=== PATIENT | female | born 1940 | race Caucasian/White ===

== ENCOUNTER 2019-07-04 08:42 | Inpatient (IN) ==
[2019-07-04] MEDS ORDERED: NS 1,000 ML IV ONE (09:18)
[2019-07-04] MEDS ORDERED: ZOFRAN IV ONE (09:18)
[2019-07-04] MEDS ORDERED: MORPHINE IV ONE (09:19)
--- NOTE | 2019-07-04 09:43 | PROVIDER DOCUMENTATION ---
HPI-General Adult - General Chief Complaint: Burn[s] Stated Complaint: LOWER BACK GRAVES FROM A HEATING PAD Time Seen by Provider: 07/04/19 08:58 Source: patient, family Allergies/Adverse Reactions: Patient Allergies Allergy/AdvReac Type Severity Reaction Status Date / Time codeine Allergy Unknown Verified 07/04/19 08:58 Home Medications: Home Medication List Medication Instructions Recorded Confirmed Last Taken Type Desvenlafaxine Succinate [Pristiq 100 mg PO DAILY 05/26/15 07/04/19 05/09/18 08:00 History ER] Fenofibrate [Tricor] 145 mg PO DAILY 05/26/15 07/04/19 05/09/18 08:00 History Gabapentin 600 mg PO HS 05/26/15 07/04/19 05/09/18 21:00 History Omeprazole [Prilosec] 20 mg PO DAILY@0700 05/26/15 07/04/19 05/09/18 08:00 History Warfarin [Coumadin] 2 mg PO DIRECTED 05/26/15 07/04/19 05/02/18 History Amlodipine/Valsartan [Exforge 1 each PO DAILY 05/02/18 07/04/19 05/09/18 21:00 History 5/160] Citalopram [Celexa] 20 mg PO DAILY 05/02/18 07/04/19 05/09/18 08:00 History Niacin [Niaspan] 1,000 mg PO HS 05/02/18 07/04/19 05/09/18 21:00 History Tramadol/APAP [Ultracet 1 each PO Q8H PRN PRN 05/02/18 07/04/19 05/09/18 12:00 History 37.5MG/325Mg] Trazodone HCl 150 mg PO HS 05/02/18 07/04/19 05/09/18 21:00 History Hydroxyzine [Atarax] 25 mg PO DAILY 05/10/18 07/04/19 05/09/18 08:00 History Bupropion X.l. [Wellbutrin Xl] 150 mg PO DAILY 07/04/19 07/04/19 Unknown History - History of Present Illness -Gen Adult Nature of Presenting Problems: Pt. is 78 yof that presents by EMS for c/o fall Tuesday night. She reports she was on the toilet and got tangled in her walker while trying to get up. She reports taking blood thinners and has a large hematoma to the right flank and hip. Pt. reports pain all over. She is unsure of any LOC. Location of Pain/Injury: reports: generalized. denies: none, head, face, mouth, neck, chest, upper extremity, hand(s), abdomen, back, pelvis, genitalia, lower extremity, feet, upper body, lower body, other Pain Radiation: reports: no radiation. denies: arm(s), back, buttocks, chest, epigastric, feet, groin, jaw, flank (L), legs (lower), LLQ, LUQ, neck, periumbilical, flank (R), RLQ, RUQ, shoulder(s), scapula, scrotal, sternal notch, suprapubic, legs (upper), urethral, vaginal, other Quality of Pain: reports: aching. denies: cramping, pressure, tightness Severity: reports: moderate. denies: mild, severe Onset/Duration: reports: abrupt, 2 days ago Timing: reports: still present. denies: improving, intermittent, getting worse Context/Activities at Onset: reports: light activity, recent trauma history. denies: none, moderate activity, vigorous activity, recent emotional stress, recent physical stress, possible bad food, cold exposure, eating, out of country travel, rest, sleep, sexual activity, other Modifying Factors: improves with: nothing Associated Symptoms: reports: muscle aches, weakness. denies: denies symptoms, anxiety, arm pain, back/neck pain, chest pain, constipation, cough, diaphoresis, diarrhea, dizziness, EENT symptoms, fatigue, fever/chills, genitourinary problems, headaches, heartburn, joint pain, loss of appetite, malaise, sinus c ongestion/drainage, nausea, rash, seizure, shortness of breath, sensory/motor loss, pain with inspiration, swelling/mass in abdomen, syncope, vomiting, trouble walking, other Similar Symptoms Previously?: Yes Recently seen or treated by another doctor?: No Review of Systems - Adult - REVIEW OF SYSTEMS - ADULT Constitutional: reports: no symptoms reported Eyes: reports: no symptoms reported Ears, Nose, Mouth & Throat: reports: no symptoms reported Cardiovascular: reports: no symptoms reported Respiratory: reports: no symptoms reported Gastrointestinal: reports: no symptoms reported Genitourinary: reports: no symptoms reported Musculoskeletal: reports: see HPI, joint pain, muscle aches, muscle weakness. denies: bone pain, neck pain Integumentary: reports: see HPI, other (hematoma). denies: hair loss, nail changes, skin sores/ulcer Neurological: reports: no symptoms reported Psychiatric: reports: no symptoms reported Past History - Adult - PAST MEDICAL HISTORY-ADULT Review of Records: reports: Old Records Reviewed, Nursing Assessment Review, Medications Reviewed, Social history reviewed & non-contributory. Major Childhood Illnesses: reports: denies history Cardiovascular: reports: HTN, hyperlipidemia, other (arrhythmia) Respiratory: reports: denies history Gastrointestinal: reports: GERD Obstetrical/Gynecological: reports: denies history Genitourinary: reports: denies history Musculoskeletal: reports: denies history Neurological: reports: denies history Psychiatric: reports: anxiety Endocrine/Immune: reports: Diabetes Other Conditions: reports: denies history - PRIOR SURGERIES/PROCEDURES Surgical/Procedure History: reports: hysterectomy, orthopedic (extremity) (bi lateral knee ), joint replacement (total knee ) - IMMUNIZATION STATUS Childhood Immunizations: See Nurse Assessment Flu Vaccine: See Nurse Assessment - FAMILY HISTORY Family History: reviewed, not pertinent - SOCIAL HISTORY Smoking: denies Physical Exam-General - PHYSICAL EXAM-ADULT Initial Vital Signs Reviewed: Yes - CONSTITUTIONAL General Appearance: alert, mild distress, obese. negative: anxious, slow to respond, obtunded, combative - EYES Eyes: PERRL/EOMI, pink conjunctivae - HEAD, EARS, NOSE, MOUTH & THROAT HENMT: normocephalic/atraumatic, moist mucous membranes - NECK Neck: non-tender, full range of motion, supple, normal inspection - RESPIRATORY Respiratory: lungs clear, normal breath sounds - CARDIOVASCULAR Cardiovascular: normal peripheral pulses, regular rate, rhythm - GASTROINTESTINAL (ABDOMEN) Abdominal Exam: normal bowel sounds, soft - LYMPHATIC Lymphatic: no adenopathy - MUSCULOSKELETAL Back Exam: ecchymosis, muscle spasm. negative: kyphosis, swelling, vertebral tenderness Extremity: normal inspection Peripheral Pulses: radial (R): 2+, radial (L): 2+ - SKIN Integumentary: ecchymosis (large hematoma noted to right lower back, right hip and right flank.), other (There are graves to the right lower back where the patient fell asleep on a heating pad.). negative: cyanosis, jaundice, swelling, tenderness - NEUROLOGIC Neurologic: grossly normal, no motor/sensory deficits - PSYCHIATRIC Psych/Mental Status: oriented x 3. negative: anxious, paranoid, tearful Progress - PLAN OF CARE/RESULTS Progress/Plan/Lab Results: Vital Signs - 8 hr 07/04/19 08:48 Temperature 97.6 F Pulse Rate 95 H Respiratory Rate 20 Blood Pressure 95/51 O2 Sat by Pulse Oximetry 98 Orders Category Date Time Status Saline Loc NOW Care 07/04/19 09:15 Active CHEST-1 VIEW [RAD] Stat Exams 07/04/19 09:[address] HEAD/C-SPINE W/O CONTRAST [CT] Stat Exams 07/04/19 09:[address] PELVIS W/O CONTRAST [CT] Stat Exams 07/04/19 09:17 Ordered BLOOD CULTURE [BLDCUL] Stat Lab 07/04/19 09:22 Ordered CBC WITH ELECTRONIC DIFF [HEME] Stat Lab 07/04/19 09:00 Results CK PROFILE [SP CHEM] Stat Lab 07/04/19 09:00 Received COMPREHENSIVE METABOLIC PANEL [CHEM] Stat Lab 07/04/19 09:00 Received LACTATE, PLASMA [CHEM] Stat Lab 07/04/19 09:00 Received PROTIME WITH INR [COAG] Stat Lab 07/04/19 09:00 Received PTT [COAG] Stat Lab 07/04/19 09:00 Received TROPONIN T Stat Lab 07/04/19 09:00 Received URINALYSIS W/POSS RFLX CULT [URINALYSIS] Stat Lab 07/04/19 09:16 Uncollected 0.9% Sodium Chloride Inj [Ns] 1,000 ml Med 07/04/19 09:18 Discontinued IV KVO mls/hr Morphine Med 07/04/19 09:19 Discontinued 2 mg IV NOW ONE Ondansetron [Zofran] Med 07/04/19 09:18 Discontinued 4 mg IV NOW ONE EKG [EKG] Stat Ther 07/04/19 09:15 Ordered Result Diagrams: 07/04/19 09:00 07/04/19 09:00 - CT/MRI 1 CT Study: Cervical Spine ([facility] - [address], [address], [place] [address] [address] Department of Imaging Patient: JAROCHO CARPENTER Date: 07/04/19MR#: [id number] : 1940DM Status: REG ERAcct#: [id number] Age/Sex: 78/FRoom/Bed: Loc: ED Ordering Physician: Noe Mosley Family Physician: Christiano Westbrook DO Reason for Procedure: Fall/unk LOC Signed CT HEAD/C-SPINE W/O CONTRAST - 07/04/2019 INDICATION: Fall/unk LOC COMPARISON: 05/26/2015 FINDINGS: Head CT: There is mild cerebral atrophy. There is very mild periventricular white matter chronic microvascular ischemia. No intracranial mass or hemorrhage. The skull is intact. The sinuses are clear. Cervical spine: Stable fusion changes at the disc space at C5-C6. Alignment is anatomic. No fracture or subluxation. Stable mild multilevel degenerative disc disease. Stable moderate to advanced multilevel facet degeneration. IMPRESSION: No acute injury. This exam was performed using automated exposure control, adjustment of mA or kV according to patient size, and/or use of iterative reconstruction technique Electronically signed by Rakan Riggins 07/04/2019 10:11 AM 07/04/19 1011 Interpreting Physician: Rakan Riggins MD Dictated Date/Time: 07/04/19 1007 cc: Noe Mosley; Christiano Westbrook DO), Head CT Results: See note 2 CT Study: Pelvis ([facility] - [address], [address], [place] [address] [address] [place] [address] [place] [address] Department of Imaging Patient: JAROCHO CARPENTER Date: 07/04/19MR#: [id number] : 1940DM Status: REG ERAcct#: [id number] Age/Sex: 78/FRoom/Bed: Loc: ED Ordering Physician: Noe Mosley Family Physician: Christiano Westbrook DO Reason for Procedure: Fall/pain with bruising Right side Signed CT PELVIS W/O CONTRAST - 07/04/2019 INDICATION: Fall/pain with bruising Right side COMPARISON: X-ray series 07/04/2016 FINDINGS: There is a stable right total hip prosthesis. Alignment is anatomic. No fracture or subluxation. There is advanced osteoarthritis of the left hip. There is also advanced degeneration of the lower lumbar spine. There is extensive subcutaneous soft tissue edema at the lateral right hip region. No drainable fluid collections. IMPRESSION: Extensive bruising over the right hip. No fractures. This exam was performed using automated exposure control, adjustment of mA or kV according to patient size, and/or use of iterative reconstruction technique Electronically signed by Rakan Riggins 07/04/2019 10:14 AM 07/04/19 1014 Interpreting Physician: Rakan Riggins MD Dictated Date/Time: 07/04/19 1011 cc: Noe Mosley; Christiano Westbrook DO) CT Results: See note 3 CT Study: Abdomen, Thorax ([facility] - [address] [facility], [address], [place] [address] [facility] - [address] [place] [address] Department of Imaging Patient: JAROCHO CARPENTER Date: 07/04/19MR#: [id number] : 1940DM Status: REG ERAcct#: [id number] Age/Sex: 78/FRoom/Bed: Loc: ED Ordering Physician: Noe Mosley Family Physician: Christiano Westbrook DO Reason for Procedure: Fall with pain to right ribs Signed CT THORAX/ABDOMEN W/O CONTRAST - 07/04/2019 INDICATION: Fall with pain to right ribs COMPARISON: None FINDINGS: CHEST: There is no adenopathy. Heart and great vessels are normal. The lungs are clear. There are several old right-sided rib deformities. No acute rib fracture. ABDOMEN: There is minimally displaced fracture of the tip of the right transverse process of L1. There is moderate scoliosis and severe degeneration throughout the lumbar spine. There is an IVC filter in good position. There is severe soft tissue edema at the right lateral abdominal and pelvic body wall. There are a couple of hematomas in the right lateral subcutaneous body wall measuring six and 5 cm respectively. No bowel obstruction or inflammation. There are cholecystectomy clips. Otherwise all abdominal organs are normal. IMPRESSION: 1. Minimally displaced fracture of the right transverse process of L1. 2. Severe right abdominal body wall subcutaneous swel ling. There are a couple of moderate size hematomas as well. This exam was performed using automated exposure control, adjustment of mA or kV according to patient size, and/or use of iterative reconstruction technique Electronically signed by Rakan Riggins 07/04/2019 12:00 PM 07/04/19 1200 Interpreting Physician: Rkaan Riggins MD Dictated Date/Time: 07/04/19 1155 cc: Noe Mosley; Christiano Westbrook DO) CT Results: See note - CONSULTS/PCP/HOSPITALIST Notification #1 *Consult/PCP/Hospitalist*: Cari Vitale Time Discussed: 12:27 Reason/Comments: Admission Consult Disposition: Will see in ED, Admit Departure - Departure Date of Disposition Decision: 07/04/19 Time of Disposition Decision: 10:37 DIAGNOSIS: Acute kidney injury, Hypocalcemia, Hyperglycemia, Hematoma Anemia Qualifiers: Anemia type: unspecified type Qualified Code(s): D64.9 - Anemia, unspecified Disposition: ADMITTED INPATIENT 09 Certified Medical Emergency: Emergent Condition: Stable Referrals and Follow-Ups: Christiano Westbrook DO [Primary Care Provider] - - Critical Care Note This patient required my direct & personal management of CC.: Yes Total Time (mins): 45 Critical Care Statement: This patient required my direct personal management to treat or rule out processes, the absence of which, could potentiallly result in sudden, clinically significant life or limb threatening deterioration. Attestation - Physician/ HERMILA Attestation Patient care was provided by Advanced Practice Provider:: Yes Advanced Practice Provider:: Noe Mosley Advanced Practice Provider documentation review:: The Mid-level provider documentation, treatment plan and medical decision making was reviewed by the physician who agrees with all treatment and medical decision making by the MLP. The physician spent face to face time with patient:: No Advanced Practice Provider documentation review:: Supervising physician onsite and consulted in the evaluation and care of this patient. The physician did not have a face to face encounter with the patient.
[2019-07-04 10:00] LABS: PTT 75.7 Seconds (22.3-41.8)
[2019-07-04 10:03] LABS: BASO# 0.04 X1000 (0.0-0.2); BASO% 0.5 % (0.0-0.8); EOS# 0.12 X1000 (0.0-0.7); EOS% 1.4 % (0.0-10.0); HEMATOCRIT 20.6 % (37.0-47.0); HEMOGLOBIN 6.6 g/dL (12.0-16.0); IMM GRAN# 0.02 X1000 (0.0-0.04); IMM GRAN% 0.2 % (0.0-0.5); LYMPH# 1.62 X1000 (1.2-3.4); LYMPH% 19.4 % (20.5-51.1); MCH 33.7 PG (27-31); MCV 105.1 FL (81-99); MPV 10.4 FL (7.4-10.4); NEUT# 6.04 X1000 (1.4-6.5); NEUT% 72.5 % (42.2-75.2); PLT 209 X1000 (130-400); RBC 1.96 XMIL (4.2-5.4); RDW 12.7 % (11.5-14.5); WBC 8.34 X1000 (4.8-10.8)
--- NOTE | 2019-07-04 10:12 | Diag Imaging Result Doc PS360 ---
EXAM: CHEST-1 VIEW INDICATION: Fall/weakness TECHNIQUE: One view COMPARISON: 06/16/2015 FINDINGS: There has been an interval left shoulder arthroplasty. There are a few stable healed rib fractures on the right. The lungs are grossly clear. There is no significant pleural fluid collection or pneumothorax. The cardiomediastinal silhouette and central vasculature are grossly unremarkable. IMPRESSION: No evidence of acute pathology by plain radiograph. Electronically signed by Alexis Mccarty 07/04/2019 10:09 AM
--- NOTE | 2019-07-04 10:14 | Diag Imaging Result Doc PS360 ---
CT HEAD/C-SPINE W/O CONTRAST - 07/04/2019 INDICATION: Fall/unk LOC COMPARISON: 05/26/2015 FINDINGS: Head CT: There is mild cerebral atrophy. There is very mild periventricular white matter chronic microvascular ischemia. No intracranial mass or hemorrhage. The skull is intact. The sinuses are clear. Cervical spine: Stable fusion changes at the disc space at C5-C6. Alignment is anatomic. No fracture or subluxation. Stable mild multilevel degenerative disc disease. Stable moderate to advanced multilevel facet degeneration. IMPRESSION: No acute injury. This exam was performed using automated exposure control, adjustment of mA or kV according to patient size, and/or use of iterative reconstruction technique Electronically signed by Rakan Riggins 07/04/2019 10:11 AM
--- NOTE | 2019-07-04 10:16 | Diag Imaging Result Doc PS360 ---
CT PELVIS W/O CONTRAST - 07/04/2019 INDICATION: Fall/pain with bruising Right side COMPARISON: X-ray series 07/04/2016 FINDINGS: There is a stable right total hip prosthesis. Alignment is anatomic. No fracture or subluxation. There is advanced osteoarthritis of the left hip. There is also advanced degeneration of the lower lumbar spine. There is extensive subcutaneous soft tissue edema at the lateral right hip region. No drainable fluid collections. IMPRESSION: Extensive bruising over the right hip. No fractures. This exam was performed using automated exposure control, adjustment of mA or kV according to patient size, and/or use of iterative reconstruction technique Electronically signed by Rakan Riggins 07/04/2019 10:14 AM
[2019-07-04 10:17] LABS: INR 7.76; PROTIME 68.5 Seconds (11.0-16.0)
[2019-07-04 10:22] LABS: ALB/GLOB RATIO 1.6; ALBUMIN 2.6 g/dL (3.5-5.0); CREATININE 2.6 mg/dL (0.5-0.9); POTASSIUM 3.6 mmol/L (3.5-5.1); TOTAL BILIRUBIN 0.26 mg/dL (0.20-1.00); TOTAL PROTEIN 4.2 g/dL (6.3-8.3)
[2019-07-04] MEDS ORDERED: NS 500 ML IV ONE (10:22)
[2019-07-04 10:27] LABS: URINE SOURCE CATH
[2019-07-04 10:30] LABS: BILIRUBIN URINE SMALL (NEGATIVE); BLOOD URINE NEGATIVE (NEGATIVE); COLOR YELLOW; GLUCOSE URINE NEGATIVE (NEGATIVE); KETONE URINE NEGATIVE (NEGATIVE); LEUKOCYTES URINE NEGATIVE (NEGATIVE); NITRITE URINE NEGATIVE (NEGATIVE); PROTEIN URINE NEGATIVE (NEGATIVE); SP GRAVITY URINE 1.018; TURBIDITY URINE CLEAR (CLEAR); UR EPITHELIAL CELLS <10 /HPF (<10); URINE BACTERIA NEGATIVE /HPF; URINE RBC <10 /HPF (<10); URINE WBC <10 /HPF (<10); UROBILINOGEN URINE NORMAL (NORMAL)
[2019-07-04 10:36] LABS: CALCIUM 6.5 mg/dL (8.8-10.2)
[2019-07-04] MEDS ORDERED: CALCIUM GLUCONATE 1 GM in NS 50 ML IV ONE (10:51)
[2019-07-04] MEDS ORDERED: DILAUDID IV ONE (10:52)
--- NOTE | 2019-07-04 12:02 | Diag Imaging Result Doc PS360 ---
CT THORAX/ABDOMEN W/O CONTRAST - 07/04/2019 INDICATION: Fall with pain to right ribs COMPARISON: None FINDINGS: CHEST: There is no adenopathy. Heart and great vessels are normal. The lungs are clear. There are several old right-sided rib deformities. No acute rib fracture. ABDOMEN: There is minimally displaced fracture of the tip of the right transverse process of L1. There is moderate scoliosis and severe degeneration throughout the lumbar spine. There is an IVC filter in good position. There is severe soft tissue edema at the right lateral abdominal and pelvic body wall. There are a couple of hematomas in the right lateral subcutaneous body wall measuring six and 5 cm respectively. No bowel obstruction or inflammation. There are cholecystectomy clips. Otherwise all abdominal organs are normal. IMPRESSION: 1. Minimally displaced fracture of the right transverse process of L1. 2. Severe right abdominal body wall subcutaneous swelling. There are a couple of moderate size hematomas as well. This exam was performed using automated exposure control, adjustment of mA or kV according to patient size, and/or use of iterative reconstruction technique Electronically signed by Rakan Riggins 07/04/2019 12:00 PM
[2019-07-04] MEDS ORDERED: TYLENOL PO PRN (13:54)
[2019-07-04] MEDS ORDERED: DILAUDID IV PRN (13:54)
[2019-07-04] MEDS ORDERED: VITAMIN K SUBQ ONE (13:54)
--- NOTE | 2019-07-04 14:26 | HISTORY AND PHYSICAL ---
HISTORY OF PRESENT ILLNESS: Ms Robbins is a 78-year-old. She presented, stated that today is Tuesday. I think it was Tuesday, she was in the bathroom and got tangled up in her walker, and she fell and hit her back pretty hard. Her right side has got a large area of ecchymosis. She is on blood thinner. Radiographically, she has an L1 transverse process fracture. She was walking right after the fall, able to get her up but today, in a lot of pain. She had put a heating pad on the back and she has some vesicles and some irritated skin, large area of ecchymosis extending all around the right flank. PAST MEDICAL HISTORY: 1. She has had a blood clot, DVT in the leg in the past. 2. Depression. 3. Hypertension. 4. Apparently chronic kidney disease. 5. Rheumatoid arthritis. PAST SURGICAL HISTORY: 1. Appendectomy. 2. Cholecystectomy. 3. She has had right hip replacement. 4. Status post hysterectomy. 5. Both knees have had total knee arthroplasty. The right has had a total of three surgeries with revision. Problems with general anesthesia, she has not had any problems with that. SOCIAL HISTORY: She is . Several children and grandchildren. Never has smoked. No alcohol. 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 She has seen Dr. Frederick in the past. I think he did surgical intervention on that left shoulder. ALLERGIES: Codeine. MEDICATIONS: We will review her medications. There was a note about a possible arrhythmia in the past but I think she was on blood thinner for a history of DVT in the past. They are not really sure. Her family is not really sure why she is on blood thinner. REVIEW OF SYSTEMS: No fever or chills. No weight gain or loss. HEENT: No change in visual or hearing acuity. Respiratory: No increased work of breathing or dyspnea. Cardiovascular: No chest pain or tachy palpitations. GI and : No change in bowels or urination. Endocrinologic/Hematologic: No significant history. Musculoskeletal: Complaints of right back pain and she has a large area of ecchymosis with burn on the right flank. PHYSICAL EXAMINATION: VITAL SIGNS: Temperature is 97.6 degrees, pulse is 88, respirations 17, blood pressure 115/57. Weight 192 pounds. Height 5 feet 5 inches. HEENT: Pupils are equal and round. Oral and nasal mucosa without any lesions. RESPIRATORY: Lungs are clear in all lung bey. CARDIOVASCULAR EXAMINATION: Regular rhythm and rate without murmur or S3. ABDOMEN: Soft, nondistended. SKIN: Large area of ecchymosis extends around to the right flank and to the mid back, probably be 14-15 cm wide. She had some vesicles where she has had a heating pad, a few scattered vesicles and some skin tears there as well. NECK: Without any thyromegaly. No adenopathy. LABORATORY DATA: White count 8340, hematocrit is 20, hemoglobin 6.6, platelet count 209,000, with an MCV of 105. Sodium 139, potassium 3.6, chloride 109, BUN 26, creatinine 2.6. AST was 7, ALT was 30. Note, her albumin is 2.6. Prothrombin time was 68 with an INR of 7.76. Urinalysis unremarkable. CT of the abdomen and chest, minimally displaced fracture on the right transverse process of L1, severe right abdominal body wall subcutaneous swelling, a couple of moderate-sized hematomas as well. Chest x-ray, no evidence of acute pathology. No infiltrates. Head and spinal CT, no acute injury appreciated. Pelvic CT, extensive bruising over the right hip but no fractures. ASSESSMENT AND PLAN: 1. L1 transverse process fracture on the right, minimally displaced, large area of hematoma. She says she is on Coumadin and chronic anticoagulation. We are going to obviously stop the Coumadin. We are going to give fresh frozen plasma 1 unit. We will give some vitamin K. Ask just for orthopedics to render an opinion and we will begin physical therapy. 2. She had some irritation on her skin where she had a heating pad and some small superficial whitley and skin tears that we need to treat topically. 3. We need to see how she does as far as ambulation and her independence. Maybe we can get her home with home health, depending on how we progress. 4. Chronic kidney disease. Her creatinine is 2.6. It was 1.4 back in April of 2018, so we are going to give her some fluid. We are going to go ahead and check her left ventricular function with an echocardiogram Doppler just to help us with fluid management but right now, we will give her normal saline and we will run it at 85 mL an hour. We will follow closely her creatinine and electrolytes, checking them daily for the next 3 or 4 days. 5. She also had significant anemia which I am assuming this is related to the hematoma. Her hemoglobin was 6.6, hematocrit was 20, MCV is 105, but we are going to give 2 units of packed red blood cells. 6. For pain control, the Dilaudid seemed to work pretty good so we will give her 1 mg of Dilaudid every 4 hours as needed. REVIEW OF MEDICATIONS: Looking over her medications, I think we will continue her current medications. She is on amlodipine, valsartan combination 5/160 one a day. She takes Wellbutrin XL 150 mg a day, Celexa 20 mg a day, Pristiq 100 mg daily, Tricor 145 mg a day, gabapentin 600 mg at bedtime, Atarax 25 mg p.o. daily, Niaspan 1000 mg at bedtime. She takes tramadol at home, trazodone 150 mg p.o. at bedtime. Obviously, we will hold the Coumadin. We are going to need to watch. She is on Wellbutrin, Celexa, Pristiq, trazodone, tramadol, and gabapentin. All of these can lead to serotonin syndrome so we may have to hold some of this but we will go ahead and continue for now. cc: Dimitri Vitale MD
[2019-07-04 14:36] LABS: FREE T4 1.12 ng/dL (0.93-1.70); TSH 2.24 uIUmL (0.27-4.20)
[2019-07-04] MEDS ORDERED: NS 250 ML ONE (15:21)
[2019-07-04] MEDS: NS 1,000 ML IV SCH (17:00)
--- NOTE | 2019-07-04 17:28 | Diag Imaging Result Doc PS360 ---
THORACO-LUMBAR SPINE - 07/04/2019 INDICATION: back pain TECHNIQUE: Three views COMPARISON: 05/26/2015 FINDINGS: There is a stable IVC filter at about L2. Alignment is grossly anatomic. No fracture or subluxation. There is moderate to advanced multilevel degenerative disc disease. This is worst at the lower lumbar spine. There is also advanced facet disease at the lower lumbar spine. IMPRESSION: No acute injury at the thoracolumbar junction. Electronically signed by Rakan Riggins 07/04/2019 5:25 PM
[2019-07-04] MEDS: ULTRACET 37.5MG/325MG PO PRN (18:57)
[2019-07-04] MEDS ORDERED: BENADRYL IV ONE (19:32)
[2019-07-04] MEDS ORDERED: CLARITIN PO ONE (19:33)
[2019-07-04] MEDS ORDERED: PHENERGAN IV ONE (19:34)
[2019-07-04] MEDS ORDERED: SODIUM CHLORIDE 0.9% INJ ONE (19:34)
[2019-07-04] MEDS ORDERED: ZANTAC PO ONE (19:36)
[2019-07-04] MEDS: ZOFRAN IV PRN (19:36)
[2019-07-04] MEDS: NS 1,000 ML IV ONE ×2 (19:45→19:54)
[2019-07-04] MEDS: OFIRMEV 1000 MG/ISOTONIC SOLN 1,000 MG/100 ML BOTTLE IV SCH (19:53)
[2019-07-04] MEDS ORDERED: NEURONTIN PO SCH (21:00)
[2019-07-04] MEDS: DESYREL PO SCH (21:55)
[2019-07-04] MEDS: NIACIN PO SCH (21:56)
[2019-07-05] MEDS: OFIRMEV 1000 MG/ISOTONIC SOLN 1,000 MG/100 ML BOTTLE IV SCH ×3 (02:37→16:01)
[2019-07-05 05:13] LABS: URINE SOURCE CLEAN CATCH
[2019-07-05 05:18] LABS: BILIRUBIN URINE NEGATIVE (NEGATIVE); BLOOD URINE MODERATE (NEGATIVE); COLOR YELLOW; GLUCOSE URINE NEGATIVE (NEGATIVE); KETONE URINE NEGATIVE (NEGATIVE); LEUKOCYTES URINE NEGATIVE (NEGATIVE); NITRITE URINE NEGATIVE (NEGATIVE); PH URINE 5.5; PROTEIN URINE NEGATIVE (NEGATIVE); TURBIDITY URINE HAZY (CLEAR); UROBILINOGEN URINE NORMAL (NORMAL)
[2019-07-05 05:29] LABS: UR EPITHELIAL CELLS <10 /HPF (<10); URINE BACTERIA NEGATIVE /HPF; URINE CASTS NONE SEEN; URINE CRYSTALS NONE SEEN; URINE RBC <10 /HPF (<10); URINE SMALL ROUND CELLS NONE SEEN; URINE WBC <10 /HPF (<10); URINE YEAST NONE SEEN
[2019-07-05 08:29] LABS: BASO# 0.03 X1000 (0.0-0.2); BASO% 0.2 % (0.0-0.8); EOS# 0.25 X1000 (0.0-0.7); EOS% 1.7 % (0.0-10.0); HEMATOCRIT 21.2 % (37.0-47.0); HEMOGLOBIN 6.9 g/dL (12.0-16.0); IMM GRAN# 0.05 X1000 (0.0-0.04); IMM GRAN% 0.3 % (0.0-0.5); INR 3.08; LYMPH% 9.3 % (20.5-51.1); MCH 31.8 PG (27-31); MCHC 32.5 g/dL (33-37); MCV 97.7 FL (81-99); MONO# 0.98 X1000 (0.11-0.59); MONO% 6.5 % (1.7-9.3); MPV 9.7 FL (7.4-10.4); NEUT# 12.33 X1000 (1.4-6.5); PLT 137 X1000 (130-400); PROTIME 32.7 Seconds (11.0-16.0); RBC 2.17 XMIL (4.2-5.4); RDW 16.2 % (11.5-14.5); WBC 15.04 X1000 (4.8-10.8)
[2019-07-05 08:53] LABS: CALCIUM 8.1 mg/dL (8.8-10.2); CREATININE 3.4 mg/dL (0.5-0.9); POTASSIUM 4.8 mmol/L (3.5-5.1)
[2019-07-05] MEDS ORDERED: TRICOR PO SCH (09:00)
[2019-07-05] MEDS ORDERED: ATARAX PO SCH (09:00)
[2019-07-05] MEDS ORDERED: CELEXA PO SCH (09:00)
[2019-07-05] MEDS ORDERED: PRISTIQ ER PO SCH (09:00)
[2019-07-05] MEDS ORDERED: WELLBUTRIN XL PO SCH (09:00)
[2019-07-05] MEDS: EXFORGE 5/160 PO SCH (09:59)
--- NOTE | 2019-07-05 13:42 | PROGRESS NOTE ---
DATE: 07/05/2019 SUBJECTIVE: Ms. Robbins had some confusion this morning. Early this morning, I saw her. She was comfortable, had gotten good sleep but then later on, she was confused. Tried to pull or IV out, took her clothes off, and now she is oriented again x3. I think we need to back down on, in particular, her serotonin uptake inhibitor. She is on a variety of medicines that kind of contribute to serotonin syndrome. OBJECTIVE: Temperature 97.8 degrees, pulse 90, respirations 18, blood pressure 156/46. Pupils are equal and round. Lungs are clear in all lung bey. Cardiovascular Examination: Regular rhythm and rate without murmur or S3. Abdomen is soft. Skin is warm and dry. Urine output is 5 L. ASSESSMENT AND PLAN: 1. L1 transverse process fracture on the right, minimally displaced. Large area of hematoma with some bullae and some skin tears around the right flank and back. We have held the Coumadin, given her some fresh frozen and vitamin K. Continue topical care. 2. Skin irritation, large area of hematoma and ecchymosis on the right side. Holding the Coumadin. 3. She is on Coumadin for a history of deep venous thrombosis and holding that. We will follow her INR. Today, it went down from 7.7 to 3.0. Continue topical care. She may need to go to rehab. 4. Confusion and delirium. I strongly suspect it has to do with serotonin syndrome. She is on multiple medications at home so we will stop her Pristiq. We will stop her Wellbutrin and I am going to hold her. I think I am going to stop her Neurontin as well. cc: Dimitri Vitale MD
--- NOTE | 2019-07-05 13:53 | ECHO REPORT ---
ORDER DATE: 07/05/2019 INDICATION: Atrial fibrillation, hypertension, hyperlipidemia, diabetes. FINDINGS: 1. Right atrium appears normal in size. 2. Trace tricuspid regurgitation. Insufficient data to estimate RV systolic pressure. 3. Normal RV size and systolic function. 4. No significant pulmonic insufficiency. 5. Moderate left atrial enlargement with a volume index of 35. 6. No mitral valve prolapse. No significant mitral regurgitation. No mitral stenosis. 7. Normal LV size, end-diastolic dimension of 5.3. Mild left ventricular hypertrophy with a posterior and interventricular septal wall thickness of 1.0 and 1.2 cm respectively. Normal LV systolic function. Estimated EF is 60%. 8. Aortic valve is poorly visualized on 2-dimensional imaging. The peak gradient across the valve is 21 with a mean of 11, suggesting possible minimal aortic stenosis. No insufficiency. 9. Aorta appears normal in visualized segments. 10. No pericardial effusion seen. cc: MD Cari Abarca CRNP
[2019-07-05] MEDS: PRILOSEC PO SCH (16:00)
--- NOTE | 2019-07-05 18:36 | ORTHOPAEDICS CONSULTATION ---
DATE: 07/05/2019 CHIEF COMPLAINT: Spine fracture. HISTORY OF PRESENT ILLNESS: This 78-year-old female was admitted by the hospitalist. She reported sustaining a fall in her bathroom when she got tangled up in her walker Tuesday. She fell on her back. She is admitted to the hospital for further evaluation. She underwent a CT scan which showed a nondisplaced L1 transverse process fracture. We were consulted for evaluation of her back pain. PAST MEDICAL HISTORY: Significant for DVT, depression, hypertension, renal disease, rheumatoid arthritis, appendectomy, cholecystectomy, right hip replacement, hysterectomy, and bilateral knee arthroplasties of the knees. SOCIAL HISTORY: Is a household ambulator. with children. Does not smoke or drink. ALLERGIES: Reported codeine. MEDICATIONS: Are as listed per her intake form. PHYSICAL EXAMINATION: Reveals some tenderness over the upper lumbar and lower thoracic spine. There is no deformity. There is a contusion or bruise over the area. She has good range of motion, both hips. There is no focal motor or sensory deficits. She appears to be otherwise atraumatic. IMAGING: X-rays reviewed of thoracolumbar spine were negative. X-rays reviewing a CT scan of the abdomen and chest shows a nondisplaced L1 transverse process fracture. ASSESSMENT: L1 transverse process fracture-stable. PLAN: Patient can be treated for back pain conservatively. The L1 transverse process fracture is stable and will heal in 6 to 12 weeks. There is no need for bracing with her transverse process fracture. She can follow up with department of Neurosurgery at our office over in [place] for a followup x-ray in roughly one month. She can be transferred to rehab center for continued convalescent care, strength training, mobility and therapy as her condition warrants. cc: Alexis Iniguez MD
[2019-07-05] MEDS: ULTRACET 37.5MG/325MG PO PRN (20:17)
[2019-07-05] MEDS: NIACIN PO SCH (20:26)
[2019-07-05] MEDS: DESYREL PO SCH (20:27)
[2019-07-05] MEDS: NS 1,000 ML IV SCH (20:28)
[2019-07-05] MEDS ORDERED: HALDOL IM ONE (20:50)
[2019-07-06] MEDS: DESYREL PO SCH ×2 (00:25→20:24)
[2019-07-06] MEDS: OFIRMEV 1000 MG/ISOTONIC SOLN 1,000 MG/100 ML BOTTLE IV SCH ×5 (00:26→18:09)
[2019-07-06] MEDS: NIACIN PO SCH ×2 (00:26→20:24)
[2019-07-06] MEDS: PRILOSEC PO SCH (06:40)
[2019-07-06 08:13] LABS: INR 1.22; PROTIME 15.6 Seconds (11.0-16.0)
[2019-07-06] MEDS: EXFORGE 5/160 PO SCH (08:36)
[2019-07-06] MEDS: NS 1,000 ML IV SCH ×2 (08:36→20:24)
[2019-07-06 10:45] LABS: BASO# 0.03 X1000 (0.0-0.2); BASO% 0.3 % (0.0-0.8); EOS# 0.15 X1000 (0.0-0.7); EOS% 1.6 % (0.0-10.0); HEMATOCRIT 22.2 % (37.0-47.0); HEMOGLOBIN 6.8 g/dL (12.0-16.0); IMM GRAN# 0.07 X1000 (0.0-0.04); IMM GRAN% 0.7 % (0.0-0.5); LYMPH# 1.47 X1000 (1.2-3.4); LYMPH% 15.5 % (20.5-51.1); MCH 31.5 PG (27-31); MCHC 30.6 g/dL (33-37); MCV 102.8 FL (81-99); MONO# 0.91 X1000 (0.11-0.59); MONO% 9.6 % (1.7-9.3); MPV 10.1 FL (7.4-10.4); NEUT# 6.85 X1000 (1.4-6.5); NEUT% 72.3 % (42.2-75.2); PLT 157 X1000 (130-400); RBC 2.16 XMIL (4.2-5.4); RDW 16.9 % (11.5-14.5); WBC 9.48 X1000 (4.8-10.8)
--- NOTE | 2019-07-06 10:49 | PROGRESS NOTE ---
DATE: 07/06/2019 SUBJECTIVE: The patient is resting in bed. Not in any obvious distress. Her sensorium seems to be clearer. OBJECTIVE: Vital signs: Temperature is 97.6, pulse is 97, respiratory rate is 18, blood pressure is 120/42, oxygen saturation is 97%. HEENT: Atraumatic and normocephalic. She is anicteric. No oral lesions noted. Neck: No lymphadenopathy or thyromegaly. Cardiovascular: S1 and S2. Respiratory: Has evidence of good air entry bilaterally. Abdomen is soft, nontender. No masses felt. Extremities: No evidence of edema. Back: She does have a large area of ecchymosis on the left side of her thoracolumbar region. DIAGNOSTIC DATA: INR is 1.22. ASSESSMENT AND PLAN: 1. Acute delirium. The patient's mental status was somewhat altered this morning. However, it has improved. She did have a CT scan of the brain done on 07/04/2019 which was reported as no acute injury. We will continue to follow up on the patient's mental status. 2. Minimally displaced fracture of the right transverse process of L1. We will optimize pain control. 3. Abdominal wall hematoma. We will continue to follow the patient clinically. She is noted to be severely anemic, obviously from blood loss. She has received 2 pints of packed red blood cells. We will follow up on her hemoglobin and hematocrit. 4. Acute kidney injury. We will hydrate the patient with normal saline. Follow up on her renal function. If the patient's renal function continues to worsen, we will need Nephrology evaluation. We will check urine electrolytes, renal ultrasound, intact PTH level as well as 25- hydroxy vitamin D level. 5. History of DVT of lower extremity. The patient had been on Coumadin. However, this was placed on hold because of raised INR. We will continue to hold Coumadin level in light of hematoma. Once the patient is more stable, we will resume that. 6. Hypertension. Continue current antihypertensive regimen. 7. History of rheumatoid arthritis, aware. 8. DVT prophylaxis with SCD for now. 9. GI prophylaxis with PPI. DISPOSITION: The patient will benefit from [facility] facility placement. cc: Erich Townsend MD
[2019-07-06 10:51] LABS: ALB/GLOB RATIO 1.8; ALBUMIN 3.4 g/dL (3.5-5.0); CALCIUM 8.6 mg/dL (8.8-10.2); CREATININE 2.3 mg/dL (0.5-0.9); POTASSIUM 4.9 mmol/L (3.5-5.1); TOTAL BILIRUBIN 0.67 mg/dL (0.20-1.00); TOTAL PROTEIN 5.3 g/dL (6.3-8.3)
[2019-07-06] MEDS: ZOFRAN IV PRN (12:39)
[2019-07-06] MEDS ORDERED: CALMOSEPTINE OINTMENT TOP ONE (12:44)
[2019-07-06] MEDS ORDERED: BENADRYL IV ONE (14:09)
[2019-07-06] MEDS ORDERED: NS 500 ML ONE (14:26)
[2019-07-06] MEDS: ULTRACET 37.5MG/325MG PO PRN (15:34)
--- NOTE | 2019-07-06 17:37 | Diag Imaging Result Doc PS360 ---
EXAM: US RENAL 2 (RETROPER) COMPLETE 07/06/2019 HISTORY: renal insufficiency TECHNIQUE: Renal ultrasound COMMENT: The urinary bladder is not distended. The tail of the kidneys is somewhat suboptimal due to the patient's body habitus. The right kidney is 8.9 x 4.3 x 4.8 cm the left is 9.9 x 4.1 x 5.2 cm. There is an apparent 2.2 cm hypoechogenic area in the mid to lower left renal cortex. Correlating with the recent CT of 07/04/2019 this is probably a column of Travis. IMPRESSION: No evidence of obstructive uropathy. Electronically signed by Rob Gregorio 07/06/2019 5:35 PM
[2019-07-06] MEDS: VITAMIN D PO SCH (18:07)
[2019-07-07] MEDS: OFIRMEV 1000 MG/ISOTONIC SOLN 1,000 MG/100 ML BOTTLE IV SCH ×4 (00:34→18:01)
[2019-07-07] MEDS: PRILOSEC PO SCH (06:17)
[2019-07-07] MEDS: ULTRACET 37.5MG/325MG PO PRN ×2 (07:35→18:01)
[2019-07-07] MEDS: NS 1,000 ML IV SCH ×2 (07:35→19:47)
[2019-07-07 07:37] LABS: INR 1.07; PROTIME 14.1 Seconds (11.0-16.0)
[2019-07-07 08:40] LABS: ALB/GLOB RATIO 1.3; ALBUMIN 3.2 g/dL (3.5-5.0); CALCIUM 9.1 mg/dL (8.8-10.2); CREATININE 1.8 mg/dL (0.5-0.9); POTASSIUM 4.9 mmol/L (3.5-5.1); TOTAL BILIRUBIN 1.21 mg/dL (0.20-1.00); TOTAL PROTEIN 5.6 g/dL (6.3-8.3)
[2019-07-07 08:48] LABS: HEMOGLOBIN 8.2 g/dL (12.0-16.0); MCH 31.9 PG (27-31); MCHC 31.5 g/dL (33-37); MCV 101.2 FL (81-99); MPV 9.7 FL (7.4-10.4); RBC 2.57 XMIL (4.2-5.4); WBC 10.6 X1000 (4.8-10.8)
[2019-07-07] MEDS: EXFORGE 5/160 PO SCH (10:19)
[2019-07-07] MEDS: ZOFRAN IV PRN ×2 (11:32→16:37)
--- NOTE | 2019-07-07 12:24 | PROGRESS NOTE ---
DATE: 07/07/2019 SUBJECTIVE: The patient is feeling okay. Denies any complaints. States she is ready to go to the senior care. Her son notes that she is stressed as she is that her brother has passed and the is tomorrow. She has not really been out of bed. She does answer some questions, does appear to be more oriented than on admission. PHYSICAL EXAMINATION: Vital signs: Temperature 98 degrees , pulse 75 to 111, blood pressure 152/42. General: Patient is in no respiratory distress. She is lying in the bed. She is awake. HEENT: Normocephalic. Neck: Supple. Cardiovascular: Currently tachycardic. Chest: Clear, nonlabored. Abdomen: Soft, obese, nondistended. Extremities: Moves all extremities. ASSESSMENT: 1. Hypercoagulable. Her INR is down from 7.7 to 1. We are going to restart her Coumadin. 2. Anemia, status post transfusion. Hemoglobin and hematocrit is up from 622 to 826. 3. Acute on chronic renal failure. Creatinine is down from 2.3 to 1.0. BUN is also improved. 4. Acute delirium, appears improved. 5. Minimally displaced fracture of the right transverse process L1, stable. 6. Hypertension. PLAN: We are going to attempt to get patient out of bed today. If she improves, hopefully she can discharge home tomorrow to go to the . If not, she may require rehab. We will follow. cc: Gómez Hamlin MD MTDD
[2019-07-07] MEDS: NIACIN PO SCH ×2 (19:45→20:25)
[2019-07-07] MEDS: DESYREL PO SCH ×2 (19:46→20:25)
[2019-07-07] MEDS: COUMADIN PO SCH ×2 (19:47→20:25)
[2019-07-08] MEDS: OFIRMEV 1000 MG/ISOTONIC SOLN 1,000 MG/100 ML BOTTLE IV SCH ×5 (00:10→23:59)
[2019-07-08] MEDS: ULTRACET 37.5MG/325MG PO PRN ×2 (05:37→13:53)
[2019-07-08] MEDS: PRILOSEC PO SCH ×2 (05:38→06:00)
[2019-07-08] MEDS: NS 1,000 ML IV SCH ×3 (06:03→18:18)
[2019-07-08] MEDS: EXFORGE 5/160 PO SCH (10:42)
[2019-07-08] MEDS: HALDOL IM PRN (14:01)
--- NOTE | 2019-07-08 14:43 | PROGRESS NOTE ---
DATE: 07/08/2019 Ms. Robbins feels much better, getting some sleep. She has been able to ambulate to the bathroom. The area of ecchymosis has dispersed on her right flank and back. Skin looks good and intact. OBJECTIVE: Vitals: Temperature is 98.0 degrees. Remains afebrile. Pulse 88, respirations 16, blood pressure 150/53. HEENT: Her pupils are equal. No distended neck veins. Lungs: Clear in all lung bey. Cardiovascular: Regular rate without murmur or S3. Abdomen: Soft. Skin: Warm and dry. Large area of ecchymosis extending to 2/3 of her back and flank. ASSESSMENT AND PLAN: 1. She suffered a fall with fracture of the right, I think L1 transverse process. Large area of ecchymosis. She has taken anticoagulant. Her INR is back to normal. She was given some fresh frozen and vitamin K when she came in. 2. She had some delirium, and we had stopped several of her medications. I think she was developing some serotonin syndrome-like symptoms. 3. Did an ultrasound of her kidneys. No obstructive uropathy. Her renal function has come down nice. Creatinine is down to 1.8 on 07/07. We will check it again tomorrow. Electrolytes look good. Hematocrit 26, hemoglobin 8.2. We will check that again in the morning. Overall doing better. They would like to go to rehab. Continue physical therapy. Will also get Occupational Therapy consulted. cc: Dimitri Vitale MD
[2019-07-08] MEDS: NIACIN PO SCH ×2 (19:41→20:28)
[2019-07-08] MEDS: DESYREL PO SCH ×2 (19:41→20:28)
[2019-07-09] MEDS: ULTRACET 37.5MG/325MG PO PRN ×3 (01:50→17:02)
[2019-07-09] MEDS: PRILOSEC PO SCH ×2 (05:44→06:00)
[2019-07-09] MEDS: OFIRMEV 1000 MG/ISOTONIC SOLN 1,000 MG/100 ML BOTTLE IV SCH ×4 (05:44→23:42)
[2019-07-09] MEDS: ZOFRAN IV PRN ×2 (05:47→09:39)
[2019-07-09 07:38] LABS: BASO# 0.01 X1000 (0.0-0.2); BASO% 0.1 % (0.0-0.8); EOS# 0.32 X1000 (0.0-0.7); EOS% 4.3 % (0.0-10.0); HEMATOCRIT 27.4 % (37.0-47.0); HEMOGLOBIN 8.7 g/dL (12.0-16.0); IMM GRAN# 0.08 X1000 (0.0-0.04); IMM GRAN% 1.1 % (0.0-0.5); LYMPH# 1.35 X1000 (1.2-3.4); LYMPH% 18.3 % (20.5-51.1); MCHC 31.8 g/dL (33-37); MCV 100.7 FL (81-99); MONO# 0.64 X1000 (0.11-0.59); MONO% 8.7 % (1.7-9.3); MPV 9.1 FL (7.4-10.4); NEUT# 4.99 X1000 (1.4-6.5); NEUT% 67.5 % (42.2-75.2); PLT 183 X1000 (130-400); RBC 2.72 XMIL (4.2-5.4); RDW 16.6 % (11.5-14.5); WBC 7.39 X1000 (4.8-10.8)
[2019-07-09 07:49] LABS: CREATININE 1.5 mg/dL (0.5-0.9); MAGNESIUM 1.4 mg/dL (1.5-2.7); POTASSIUM 4.6 mmol/L (3.5-5.1)
[2019-07-09] MEDS: EXFORGE 5/160 PO SCH (09:39)
[2019-07-09] MEDS: NS 1,000 ML IV SCH ×3 (09:42→22:13)
--- NOTE | 2019-07-09 18:38 | PROGRESS NOTE ---
DATE: 07/09/2019 SUBJECTIVE: Ms. Robbins is feeling better. She is getting around a little more. Still wants to pursue rehab. Her skin seems to be healing. The area of ecchymosis from her hematoma on the right flank has spread out through tissue planes, but the skin looks intact and we are going to try some Silvadene ointment on it. OBJECTIVE: Vital Signs: Temperature 97.9 degrees, pulse 99, respirations 16, blood pressure 155/68. Pupils are equal and round. Lungs: Clear in all lung bey. Cardiovascular: Regular rhythm and rate without murmur or S3. Abdomen: Soft. Skin: Warm and dry. ASSESSMENT AND PLAN: 1. Suffered fall, fracture of the right L1 transverse process, large area of ecchymosis. She is on Coumadin. INR is back to normal. We have held the Coumadin. We gave her some vitamin K and fresh frozen when she 1st came. 2. Some delirium. We backed off on several medications. [place] like she was developing serotonin syndrome with a good deal of confusion and delirium. 3. The ultrasound of the kidney with no sign of obstructive uropathy. 4. Pain and weakness. She seems to be doing good with physical therapy. They would like to pursue going to rehab. 5. Review of her orders: I do not see any change. cc: Dimitri Vitale MD
[2019-07-09] MEDS: COUMADIN PO SCH (21:12)
[2019-07-09] MEDS: DESYREL PO SCH (21:12)
[2019-07-09] MEDS: NIACIN PO SCH (21:12)
[2019-07-09] MEDS: SSD CREAM TOP SCH (21:13)
[2019-07-10] MEDS: ULTRACET 37.5MG/325MG PO PRN ×2 (00:57→09:43)
[2019-07-10] MEDS: OFIRMEV 1000 MG/ISOTONIC SOLN 1,000 MG/100 ML BOTTLE IV SCH ×3 (05:36→17:57)
[2019-07-10] MEDS: PRILOSEC PO SCH (06:32)
[2019-07-10 07:56] LABS: BASO# 0.02 X1000 (0.0-0.2); BASO% 0.2 % (0.0-0.8); EOS# 0.28 X1000 (0.0-0.7); EOS% 3.2 % (0.0-10.0); HEMATOCRIT 28.5 % (37.0-47.0); IMM GRAN# 0.11 X1000 (0.0-0.04); IMM GRAN% 1.3 % (0.0-0.5); LYMPH# 1.32 X1000 (1.2-3.4); LYMPH% 15.2 % (20.5-51.1); MCH 32.3 PG (27-31); MCHC 31.6 g/dL (33-37); MCV 102.2 FL (81-99); MONO# 0.74 X1000 (0.11-0.59); MONO% 8.5 % (1.7-9.3); MPV 9.4 FL (7.4-10.4); NEUT# 6.24 X1000 (1.4-6.5); NEUT% 71.6 % (42.2-75.2); PLT 183 X1000 (130-400); RBC 2.79 XMIL (4.2-5.4); WBC 8.71 X1000 (4.8-10.8)
[2019-07-10 07:59] LABS: INR 1.05; PROTIME 13.8 Seconds (11.0-16.0)
[2019-07-10 08:21] LABS: ALB/GLOB RATIO 1.1; ALBUMIN 3.2 g/dL (3.5-5.0); CALCIUM 9.6 mg/dL (8.8-10.2); CREATININE 1.3 mg/dL (0.5-0.9); MAGNESIUM 1.4 mg/dL (1.5-2.7); POTASSIUM 4.4 mmol/L (3.5-5.1); TOTAL BILIRUBIN 1.07 mg/dL (0.20-1.00)
[2019-07-10] MEDS: SSD CREAM TOP SCH ×2 (09:31→20:55)
[2019-07-10] MEDS: EXFORGE 5/160 PO SCH (09:31)
[2019-07-10] MEDS: NS 1,000 ML IV SCH (12:10)
[2019-07-10] MEDS ORDERED: MAGNESIUM SULFATE 2 GM/S.W.I. 2 GM/50 ML IVPB IV ONE (14:30)
[2019-07-10] MEDS: HALDOL IM PRN (15:35)
[2019-07-10] MEDS: ZOFRAN IV PRN (19:03)
[2019-07-10] MEDS: DESYREL PO SCH (20:55)
[2019-07-10] MEDS: NIACIN PO SCH (20:55)
--- NOTE | 2019-07-10 22:08 | PROGRESS NOTE ---
DATE: 07/10/2019 SUBJECTIVE: The patient is resting comfortably in bed. She complains of intermittent anxiety. OBJECTIVE: Vital signs: Temperature 98 degrees, blood pressure 157/62, heart rate 99, respirations 20, O2 saturation 99% on room air.General: This is a chronically ill-appearing elderly female lying in bed in no acute distress. Heart: S1, S2 normal. Tachycardic. Lungs: Equal air entry bilaterally. No wheezing. No rales. Abdomen: Positive bowel sounds. Soft, nontender, nondistended. Extremities: No edema, no cyanosis. Neurologic: The patient is alert and oriented x3. LABORATORY DATA: White blood cell count 8.7, hemoglobin 9, hematocrit 28, platelets 183,000. Sodium 137, potassium 4.4, chloride 104, CO2 is 18, BUN 16, creatinine 1.3. ASSESSMENT AND PLAN: 1. Abdominal wall and flank subcutaneous swelling and hematoma. Continue to monitor closely. The patient is back on warfarin therapy. 2. Fracture of the right transverse L1 process. The patient will be going to physical therapy. The patient will also follow up with orthopedic clinic upon discharge. 3. Morbid obesity. Aware. 4. Depression. Continue on Celexa. 5. Hypertension. Continue on Exforge. 6. Acute kidney injury on chronic kidney disease. The patient is back to her baseline creatinine. 7. History of lower extremity deep vein thrombosis. The patient is currently on warfarin. Will continue to monitor closely, given the patient's recent abdominal wall hematoma. 8. Disposition. The patient will be discharged to inpatient rehabilitation once a bed is available and her insurance has approved the transfer. Continue with PT. cc: MD ODELL Peters
[2019-07-11] MEDS: OFIRMEV 1000 MG/ISOTONIC SOLN 1,000 MG/100 ML BOTTLE IV SCH ×2 (00:34→06:31)
[2019-07-11] MEDS: PRILOSEC PO SCH (06:31)
[2019-07-11 08:05] LABS: HEMATOCRIT 27.3 % (37.0-47.0); HEMOGLOBIN 8.4 g/dL (12.0-16.0); MCH 31.8 PG (27-31); MCHC 30.8 g/dL (33-37); MCV 103.4 FL (81-99); MPV 9.4 FL (7.4-10.4); RBC 2.64 XMIL (4.2-5.4); RDW 17.8 % (11.5-14.5); WBC 7.24 X1000 (4.8-10.8)
[2019-07-11] MEDS: EXFORGE 5/160 PO SCH (08:06)
[2019-07-11] MEDS: CELEXA PO SCH (08:06)
[2019-07-11] MEDS: ULTRACET 37.5MG/325MG PO PRN ×2 (08:07→21:47)
[2019-07-11 08:08] LABS: INR 1.01; PROTIME 13.4 Seconds (11.0-16.0)
[2019-07-11 08:34] LABS: ALBUMIN 3.2 g/dL (3.5-5.0); CALCIUM 8.6 mg/dL (8.8-10.2); CREATININE 1.2 mg/dL (0.5-0.9); MAGNESIUM 1.6 mg/dL (1.5-2.7); POTASSIUM 3.9 mmol/L (3.5-5.1)
[2019-07-11] MEDS ORDERED: MAGNESIUM SULFATE 2 GM/S.W.I. 2 GM/50 ML IVPB IV ONE (10:40)
[2019-07-11] MEDS: SSD CREAM TOP SCH ×2 (15:08→22:08)
[2019-07-11] MEDS: ATARAX PO PRN (15:10)
--- NOTE | 2019-07-11 20:03 | PROGRESS NOTE ---
DATE: 07/11/2019 SUBJECTIVE: The patient is resting comfortably in bed. No acute events noted overnight. OBJECTIVE: Vital Signs: Temperature 97.5 degrees, blood pressure 148/46, heart rate 99, respirations 17, O2 saturation 98% on room air, intake 720, output 2.2 L. General: This is a morbidly obese female lying in bed in no acute distress. Heart: S1, S2 normal. Tachycardic. Lungs: Equal air entry bilaterally. No wheezing. No rales. No rhonchi. Abdomen: Positive bowel sounds. Soft, obese. The patient has extensive bruising over the right side of her abdomen all the way to the mid back and flank area on the right. Extremities: No edema. No cyanosis. Neurologic: The patient is alert and oriented x3. LABORATORY DATA: Hemoglobin 8.4, hematocrit 27, platelets 181,000, INR 1. Sodium 139, potassium 3.9, chloride 103, CO2 20, BUN 16, creatinine 1.2, glucose 103, albumin 3.2. ASSESSMENT AND PLAN: 1. Abdominal wall and flank hematoma. This was secondary to the patient's recent fall and supratherapeutic INR. The patient is back on warfarin therapy. We will continue to monitor for improvement. 2. Fracture of the right transverse L1 process. Continue with physical therapy. The patient will follow up with orthopedic clinic upon discharge. 3. Supratherapeutic INR. This was likely secondary to a combination of warfarin and Bactrim. The patient was prescribed Bactrim by her primary care physician on June 27. The patient's INR is now 1. We will continue to monitor the INR closely while on Coumadin therapy. 4. History of lower extremity deep vein thrombosis. The patient is back on warfarin. She will likely need to have a discussion with her primary care physician about continuing this medication given her recent falling episodes. 5. Acute kidney injury on chronic kidney disease. Improved. 6. Depression. Continue on Celexa. 7. Hypertension. Continue on Exforge. 8. Anxiety disorder. Continue on p.r.n. Atarax DISPOSITION: The patient is medically stable for discharge to inpatient rehab. We are currently waiting on the patient's insurance to approve transfer to rehab. This was discussed with Corbin, the oncology social work. I also had an extensive discussion about the discharge plan and overall plan of care with the patient's son on 07/10/2019. Continue with PT until discharge. cc: Marcelina Batres MD MTDAliya
[2019-07-11] MEDS: NIACIN PO SCH (21:46)
[2019-07-11] MEDS: DESYREL PO SCH (21:46)
[2019-07-11] MEDS: COUMADIN PO SCH (21:47)
[2019-07-11] MEDS: COLACE PO SCH (21:50)
[2019-07-11] MEDS: MIRALAX PO SCH (21:51)
[2019-07-12 07:35] LABS: HEMATOCRIT 27.4 % (37.0-47.0); HEMOGLOBIN 8.6 g/dL (12.0-16.0); MCH 32.7 PG (27-31); MCHC 31.4 g/dL (33-37); MCV 104.2 FL (81-99); MPV 9.4 FL (7.4-10.4); RBC 2.63 XMIL (4.2-5.4); RDW 18.7 % (11.5-14.5); WBC 6.44 X1000 (4.8-10.8)
[2019-07-12 07:36] LABS: INR 1.17; PROTIME 15.1 Seconds (11.0-16.0)
[2019-07-12] MEDS: MIRALAX PO SCH ×2 (08:57→22:03)
[2019-07-12] MEDS: ZOFRAN IV PRN (08:58)
[2019-07-12 08:59] LABS: ALBUMIN 3.1 g/dL (3.5-5.0); CREATININE 1.3 mg/dL (0.5-0.9); POTASSIUM 4.3 mmol/L (3.5-5.1)
[2019-07-12] MEDS: SSD CREAM TOP SCH (08:59)
[2019-07-12] MEDS: COLACE PO SCH ×2 (08:59→22:03)
[2019-07-12] MEDS: EXFORGE 5/160 PO SCH (08:59)
[2019-07-12] MEDS: CELEXA PO SCH (08:59)
--- NOTE | 2019-07-12 10:09 | PROGRESS NOTE ---
DATE: 07/12/2019 SUBJECTIVE: The patient is resting comfortably in bed. She has no complaints. She ate all of her breakfast. She also had a bowel movement. OBJECTIVE: Vital Signs: Temperature 98.7 degrees, blood pressure 132/41, heart rate 92, respirations 18, O2 saturation 97% on room air. Intake 720. General: This is a morbidly obese female, lying in bed in no acute distress. Heart: S1, S2 normal. Regular rate and rhythm. Lungs: Clear to auscultation bilaterally. Abdomen: Positive bowel sounds. Soft, nontender, nondistended. The patient has extensive bruising with a hematoma involving the right flank area, stretching around to the lower right abdomen. Extremities: No edema, no cyanosis. Neurologic: The patient is alert and oriented x3. LABORATORY DATA: White blood cell count 6.4, hemoglobin 8.6, hematocrit 27, platelets 179,000. Sodium 135, potassium 4.3, chloride 101, CO2 of 21, BUN 19, creatinine 1.3, glucose 107. Magnesium 1.8, phosphorus 3. ASSESSMENT AND PLAN: 1. Abdominal wall and flank hematoma. Unchanged. Will continue to monitor closely. 2. Fracture of the right transverse L1 process. Continue with physical therapy. The patient will follow up with Orthopedic Clinic upon discharge. 3. History of lower extremity deep vein thrombosis. The patient is currently on warfarin. Will monitor the INR daily. 4. Acute kidney injury on chronic kidney disease. Stable. 5. Situational depression. Continue on Celexa. 6. Anxiety disorder. Continue on Atarax as needed. 7. Hypertension. Stable. Continue on Exforge. 8. Disposition. The patient is medically stable for discharge to inpatient rehab. I had a discussion with the patient's son, Stiven Robbins, and informed him that we are waiting on the patient's health insurance to approve transfer to rehab. Will continue with physical therapy. cc: Marcelina Batres MD MTDD
[2019-07-12] MEDS: ATARAX PO PRN (14:02)
[2019-07-12] MEDS: ULTRACET 37.5MG/325MG PO PRN (16:00)
[2019-07-12] MEDS ORDERED: COUMADIN PO SCH (21:00)
[2019-07-12] MEDS: NIACIN PO SCH (22:03)
[2019-07-12] MEDS: DESYREL PO SCH (22:04)
[2019-07-13] MEDS: SSD CREAM TOP SCH ×2 (00:16→08:37)
[2019-07-13] MEDS: ULTRACET 37.5MG/325MG PO PRN ×2 (05:35→14:08)
[2019-07-13 07:06] LABS: HEMATOCRIT 27.8 % (37.0-47.0); HEMOGLOBIN 8.8 g/dL (12.0-16.0); MCH 33.8 PG (27-31); MCHC 31.7 g/dL (33-37); MCV 106.9 FL (81-99); RBC 2.6 XMIL (4.2-5.4); RDW 19.2 % (11.5-14.5); WBC 6.02 X1000 (4.8-10.8)
[2019-07-13 07:23] LABS: CALCIUM 9.2 mg/dL (8.8-10.2); CREATININE 1.2 mg/dL (0.5-0.9); POTASSIUM 4.4 mmol/L (3.5-5.1)
[2019-07-13 07:24] LABS: INR 1.17; PROTIME 15.1 Seconds (11.0-16.0)
[2019-07-13] MEDS: MIRALAX PO SCH (08:36)
[2019-07-13] MEDS: CELEXA PO SCH (08:36)
[2019-07-13] MEDS: EXFORGE 5/160 PO SCH (08:36)
[2019-07-13] MEDS: COLACE PO SCH (08:36)
[2019-07-13] MEDS: ATARAX PO PRN (12:09)
[2019-07-13 15:47] VITALS: BP 136/52
--- NOTE | 2019-07-13 16:09 | DISCHARGE SUMMARY ---
ADMISSION DATE: 07/04/2019 DISCHARGE DATE: 07/13/2019 PRIMARY CARE PHYSICIAN: Dr. Christiano Westbrook. FINAL DISCHARGE DIAGNOSES: 1. Abdominal wall and flank hematoma status post recent fall. 2. Supratherapeutic INR secondary to Coumadin induced coagulopathy. 3. History of lower extremity deep vein thrombosis. 4. Fracture of the right transverse process L1. 5. Situational depression. 6. Acute kidney injury on chronic kidney disease. 7. Anxiety disorder. 8. Hypertension. 9. Obesity. 10. Anemia. 11. Vitamin D deficiency. CONSULTATIONS: Orthopedic consultation with Dr. Iniguez. IMAGIN. CT of the head and cervical spine performed on 07/04/2019 that revealed no acute injury. 2. Pelvis CT performed on 07/04/2019 that revealed extensive bruising over the right hip. No fractures. 3. Portable chest x-ray performed on 07/04/2019 that revealed no acute pathology. 4. CT of the chest, abdomen and pelvis which revealed a minimally displaced fracture of the right transverse process of L1. Severe right abdominal body wall subcutaneous swelling and a couple of moderate-size hematomas. 5. Thoracolumbar spine x-rays reveals no acute injury. 6. Renal ultrasound performed reveals no evidence of obstructive uropathy. HOSPITAL COURSE: Ms Robbins is a 78-year-old female with a history of multiple medical problems who was brought to the ER via EMS after the patient suffered a fall at home. She was noted to have extensive bruising and swelling on the right side of her abdomen wrapping around to her right flank area and to her midback. In the ER a CT of the head and cervical spine were done which revealed no acute injury. The patient then had a CT of the chest, abdomen and pelvis that revealed severe right body wall subcutaneous swelling and hematoma as well as a minimally displaced fracture of the right transverse process of L1. Also, the patient was noted to have an INR of 7.7. In light of all these findings, the patient was admitted to the hospitalist service. Orthopedic Surgery was consulted for the transverse process fracture of the lumbar spine and it was recommended by the orthopedic surgeon that this be treated conservatively and that it would likely take 6 to 12 weeks to heal and that there was no need for a brace. In light of this finding, arrangements were made for the patient to be sent to inpatient rehab. The patient's warfarin was held during the hospitalization and then restarted once the INR was stable and the hematoma improved. It is thought that the combination of the warfarin plus the Bactrim that the patient was prescribed prior to admission may have led to the coagulopathy. The patient was seen by physical therapy who also recommended inpatient rehab placement. The patient was noted to be in acute on chronic kidney injury and was treated with IV fluids and her renal function returned to her baseline over the course of the hospitalization. The patient was accepted for discharge to [facility]. However, we were waiting for the patient's insurance with [facility] to approve the transfer. The approval for transfer to rehab was obtained today on 07/13/2019. The patient will be transferred to [facility] for further physical therapy. DISCHARGE MEDICATIONS: 1. Atarax 25 mg oral daily p.r.n. for anxiety. 2. Trazodone 150 mg oral at bedtime. 3. Vitamin D2 50,000 units oral every 7 days on Fridays. 4. Celexa 20 mg p.o. every morning. 5. Ultracet 1 tab oral every 8 hours p.r.n. for pain. 6. Warfarin 2 mg p.o. daily. 7. Prilosec 20 mg p.o. daily. 8. Exforge 1 tab oral daily. 9. Niaspan 1000 mg oral at bedtime. DISCHARGE DIET: Low-sodium diet. ACTIVITY: As tolerated. FOLLOWUP INSTRUCTIONS: The patient will need to follow up with Dr. Iniguez upon discharge from inpatient rehab. The patient will need to follow up with Dr. Westbrook within 2 weeks. The patient will need to follow up with Dr. Westbrook to have her INR checked on a regular basis. While the patient is in rehab, the INR will be checked daily and reported to the physician who is over the patients at [facility]. cc: DO ODELL Dang
[2019-07-13] MEDS ORDERED: FLU VACCINE IM ONE (16:50)
[2019-07-13] MEDS: VITAMIN D PO SCH (17:00)
== END 2019-07-13 17:06 | DRG 552 ==
LOC: SUPCPDRO → ED 08:42 → SUATTDRO 13:58 → EDIPHOLD 13:58 → 3N 15:28
PROVIDERS: ATTEND Internal Medicine